=== PATIENT | female | born 1955 | race Caucasian/White ===

== ENCOUNTER 2022-02-23 11:22 | Emergency (ER) | payer MEDICARE ==
[~2022-02-23] VITALS: Ht 157.5 cm; Wt 59.1 kg
[2022-02-23 11:39] VITALS: TEMP 99
[2022-02-23] MEDS ORDERED: CRUTCHES MC (12:21)
[2022-02-23 13:12] VITALS: BP 138/74; PULSE 58
== END 2022-02-23 13:12 | disposition home or self-care (01) ==
LOC: COL.ER 11:22
DX: S76.312A Strain of muscle, fascia and tendon of the posterior muscle group at thigh level, left thigh, initial encounter (principal); W18.40XA Slipping, tripping and stumbling without falling, unspecified, initial encounter; X50.1XXA Overexertion from prolonged static or awkward postures, initial encounter; Y92.34 Swimming pool (public) as the place of occurrence of the external cause
CPT/HCPCS: J1885